=== PATIENT | female | born 1985 | race African-American/Black ===

== ENCOUNTER 2021-04-02 07:52 | Day surgery (SDC) | payer OTHER ==
[2021-04-02 08:04] LABS: Specific Gravity 1.015 (1.005-1.030)
[2021-04-02] MEDS ORDERED: Ringers Lactate 1,000 ML IV ONE ×3 (08:27→08:30)
[2021-04-02] MEDS ORDERED: NS 0.9% VIAL 20 ML ONE (08:29)
[2021-04-02] MEDS ORDERED: GENTAMICIN SULF 80 MG/2ML INJ ONE (08:29)
[2021-04-02] MEDS ORDERED: SCOPOLAMINE HYDROBROMIDE PATCH TD ONE (08:30)
[2021-04-02] MEDS ORDERED: Mastisol Adhesive Liq ONE ×2 (08:30→14:15)
[2021-04-02] MEDS ORDERED: LIDOCAINE 1% W/EPI 1:100,000 MDV 20 ML VIAL ONE (08:30)
[2021-04-02] MEDS ORDERED: dexAMETHasone 10 MG/ML VIAL ONE (08:39)
[2021-04-02] MEDS ORDERED: propofoL 200 MG/20 ML VIAL IV ONE (08:39)
[2021-04-02] MEDS ORDERED: KETOROLAC 30 MG/ML INJ ONE (08:39)
[2021-04-02] MEDS ORDERED: LIDOCAINE 2% MPF 5 ML VIAL ONE (08:39)
[2021-04-02] MEDS ORDERED: MIDAZOLAM HCL 2 MG/2 ML INJ ONE (08:39)
[2021-04-02] MEDS ORDERED: ROCURONIUM 50 MG/5 ML VIAL IV ONE (08:40)
[2021-04-02] MEDS ORDERED: FENTANYL CITR 250 MCG/5 ML ONE (08:40)
[2021-04-02] MEDS ORDERED: VECURONIUM 10 MG/VIAL IV ONE (08:41)
[2021-04-02] MEDS ORDERED: ONDANSETRON 4 MG/2 ML VIAL ONE ×2 (08:41→15:15)
[2021-04-02] MEDS ORDERED: CLINDAMYCIN PHOSPHATE 300 MG in NA CHLORIDE 0.9% 50 ML IV ONE (09:30)
[2021-04-02] MEDS ORDERED: MORPHINE 10 MG/ML VIAL ONE (14:07)
[2021-04-02 15:18] VITALS: O2SAT 100
[2021-04-02] MEDS ORDERED: CODEINE 30MG/APAP 300MG TAB ONE (15:49)
[2021-04-02 16:21] VITALS: TEMP 97.3
[2021-04-02 17:18] VITALS: BP 123/83
--- NOTE | 2021-04-02 17:53 | OP ---
Surgeon: Parker Le MD Restoration Technician: Rj. Preoperative Diagnosis: Breast descent. Postoperative Diagnosis: Breast descent. Procedure Performed: Breast lift. Anesthesia: General. Description Of Procedure: After satisfactory induction of general anesthesia, chest was prepped with DuraPrep, dry sterile drapes applied in the usual manner. A 5 cm template was used to outline the r ight and left areola. Then, intervening skin was de-epithelialized with dermabrader or with tenotomy scissors. The flaps were elevated. A transverse incision was made. The flaps were elevated toward s the sternum, clavicle, anterior axillary line. Then, the inferior incision was made. Intervening skin was curved into cone using 2-0 PDS suture. The straps were elevated at 12 o'clock, 1:30, and 3 o'clock position. The straps were then woven in and out the pectoralis muscle back to the base of th e cone, back to pectoral muscle, back to base of cone, tied themselves with 2-0 PDS. The 3 o'clock s trap was sewn to the sternum at 3 o'clock position with 2-0 Ethibond. After right side was done, lef t side was done in the identical manner. Wound was temporarily stapled shut. The patient was sat up , asymmetries were marked out and returned supine. The medal and lateral dog ears were excised. Aft er it excised, the wounds were then irrigated with antibiotic solution. 10 ADRIEN brought out the axilla sewn in place with 2-0 silk and wound closed with 3-0 Vicryl subcu and 3-0 PDS running subcuticular tied in the vertical meridian of the breast. Both sides were done. The patient was sat up again, si te for new nipple-areolar complex was marked out. Tissue cored out with a 5 cm template and then sew ed with interrupted 4 -0 PDS and 4-0 PDS running subcuticular. Tinctuer of benzoin, Steri-Strips, 5 x 5s, fluffs, and Juan wraps were applied. The patient tolerated procedure well. 10 ADRIEN drains were sewn in place with 2-0 silk. GH/MODL Voice ID: [id number] Report ID: [id number]
--- NOTE | 2021-04-02 18:50 | HP ---
Date of Admission: 04/02/2021 A 36-year-old black female with request of left breast lift. No medical problems. Previous surgery has been . No smoking. No drinking. No . No medications. She has no family with breast cancer. She has breast descent. Assessment: Breast descent. She also has a small skin tag on the left ear that also to be excised. Plan: Breast lift and excision of skin tag. BRONSON/MATI Voice ID: [id number]
== END 2021-04-02 17:35 | disposition home or self-care (01) ==
LOC: OR 07:52
PROVIDERS: ATTEND Specialist
PROC: 0HSV0ZZ Reposition Bilateral Breast, Open Approach (ICD-10-PCS; principal; 2021-04-02 09:00)
DX: N64.81 Ptosis of breast (principal)
CPT/HCPCS: 81025; 88305; 19316; J2704; J1580; J2250; J3010; J1100; S0077; J7120 ×3; J2405 ×2